=== PATIENT | female | born 1985 | race Caucasian/White ===

== ENCOUNTER 2018-10-10 17:23 | Emergency (ER) | payer OTHER ==
[2018-10-10] MEDS ORDERED: Amoxicillin/Clavulanate TAB* 875 MG PO ONE (19:09)
[2018-10-10] MEDS ORDERED: oxyCODONE/Acetamin 5/325 MG* TAB PO ONE (19:10)
--- NOTE | 2018-10-10 19:13 | ED ---
Throat Pain/Nasal Congestion - HPI Summary HPI Summary: 32 year old male presents with intermittent dental pain for the past month. States she's been in and out of the oral surgeon's office due to an impacted tooth on left upper jaw. States that it connected into her sinuses. States that her sinuses are open to her mouth due to the hole in her tooth. States that 2 days ago her child ended up hitting her face and caused increased pain. She is worried about infection. She called her dentist but unable to get ahold of him so the office requested her come here for pain medication and antibiotics. She denies any fevers. No pain or swelling around her eyes. No fevers. No chest pain or shortness of breath. Has no medical conditions. - History of Current Complaint Chief Complaint: EDDentalPain Time Seen by Provider: 10/10/18 18:21 - Allergies/Home Medications Allergies/Adverse Reactions: Allergies Allergy/AdvReac Type Severity Reaction Status Date / Time cefaclor [From Ceclor] Allergy Unknown Verified 10/10/18 17:46 Reaction Details erythromycin base Allergy Unknown Verified 10/10/18 17:46 [From Pediazole] Reaction Details sulfisoxazole Allergy Unknown Verified 10/10/18 17:46 [From Pediazole] Reaction Details benzonatate AdvReac Nausea And Verified 10/10/18 17:46 [From Tessalon Perles] Vomiting ketorolac [From Toradol] AdvReac Hives Verified 10/10/18 17:46 Home Medications: Home Medications Acetaminophen [Tylenol Extra Strength] 1,000 mg PO TID PRN 10/10/18 [History Confirmed 10/10/18] FLUoxetine CAP* [PROzac CAP*] 20 mg PO BEDTIME 10/10/18 [History Confirmed 10/10] Ibuprofen TAB* [Motrin TAB* 800 MG] 800 mg PO TID PRN 10/10/18 [History Confirmed 10/10/18] PMH/Surg Hx/FS Hx/Imm Hx Endocrine/Hematology History: Denies: Hx Anticoagulant Therapy - ER) making it better Cardiovascular History: Denies: Hx Pacemaker/ICD History: Denies: Hx Dialysis Sensory History: Denies: Hx Eye Prosthesis, Hx Legally Blind Opthamlomology History: Denies: Hx Eye Prosthesis, Hx Legally Blind Neurological History: Denies: Hx Dementia Psychiatric History: Reports: Hx Anxiety, Hx Depression Denies: Hx Autism Infectious Disease History: No Infectious Disease History: Denies: Traveled Outside the [place] in Last 30 Days - Family History Known Family History: Positive: Hypertension, Diabetes - Social History Alcohol Use: Occasionally Hx Substance Use: Yes Substance Use Type: Reports: Marijuana Substance Use Comment - Amount & Last Used: Rare Hx Tobacco Use: Yes Smoking Status (MU): Light Every Day Tobacco Smoker Review of Systems Negative: Fever Positive: Dental Pain Negative: Chest Pain Negative: Shortness Of Breath All Other Systems Reviewed And Are Negative: Yes Physical Exam Triage Information Reviewed: Yes Vital Signs On Initial Exam: Initial Vitals Temp Pulse Resp BP Pulse Ox 98.2 F 105 16 137/91 100 10/10/18 17:41 10/10/18 17:41 10/10/18 17:41 10/10/18 17:41 10/10/18 17:41 Vital Signs Reviewed: Yes Appearance: Positive: Well-Appearing Skin: Positive: Warm, Dry Head/Face: Positive: Normal Head/Face Inspection Eyes: Positive: Normal, Conjunctiva Clear ENT: Positive: Pharynx normal Dental: Positive: Other - pain where tooth 16 should be with suture in place in gum Respiratory/Lung Sounds: Positive: Clear to Auscultation, Breath Sounds Present Cardiovascular: Positive: Normal, RRR Musculoskeletal: Positive: Normal Neurological: Positive: Normal Psychiatric: Positive: Normal Diagnostics - Vital Signs Vital Signs Temp Pulse Resp BP Pulse Ox 10/10/18 17:41 98.2 F 105 16 137/91 100 - Laboratory Lab Statement: Any lab studies that have been ordered have been reviewed, and results considered in the medical decision making process. EENT Course/Dx - Course Course Of Treatment: 32 year old male presents with intermittent dental pain for the past month. States she's been in and out of the oral surgeon's office due to an impacted tooth on left upper jaw. States that it connected into her sinuses. States that her sinuses are open to her mouth due to the hole in her tooth. States that 2 days ago her child ended up hitting her face and caused increased pain. She is worried about infection. She called her dentist but unable to get ahold of him so the office requested her come here for pain medication and antibiotics. She denies any fevers. No pain or swelling around her eyes. No fevers. No chest pain or shortness of breath. Has no medical conditions. On exam has tenderness to where tooth 16 was with sutures in place. We'll place on Augmentin. gave short course of pain medications and antibiotics to get her till Monday when she follows up with her surgeon. Patient understands agrees plan. - Differential Diagnoses Differential Diagnoses: Dental Abscess, Dental Caries, Fractured Tooth - Diagnoses Provider Diagnoses: Tooth infection Discharge - Sign-Out/Discharge Documenting (check all that apply): Patient Departure Patient Received Moderate/Deep Sedation with Procedure: No - Discharge Plan Condition: Good Disposition: HOME Prescriptions: Amoxicillin/Clavulanate TAB* [Augmentin TAB 500 mg*] 500 mg PO BID #13 tab oxyCODONE/Acetamin 5/325 MG* [Percocet 5/325 TAB*] 1 tab PO Q6H PRN #8 tab MDD 4 PRN Reason: Pain Patient Education Materials: Toothache (ED) Referrals: Carmen Short EDUCATION COORDINATOR [Primary Care Provider] - Additional Instructions: Take antibiotic twice a day for 7 days, first dose given in ED Use ibuprofen every 6 hours and narcotic for break through pain at night every 6 hours Avoid hard, crunchy food until seen by dentist Follow up with dentist as soon as possible Return to ED if develop fever, shortness of breath, pain with eye movement or swelling around eye or any new or worsening symptoms - Billing Disposition and Condition Condition: GOOD Disposition: Home Images - Images Dental: 1 - pain
[2018-10-10 19:42] VITALS: BP 126/91
== END 2018-10-10 19:41 | disposition home or self-care (01) ==
LOC: ED 17:23 → MERGE 17:23 → ED 19:41
DX: K04.7 Periapical abscess without sinus (principal); F17.210 Nicotine dependence, cigarettes, uncomplicated; Z88.3 Allergy status to other anti-infective agents; Z88.2 Allergy status to sulfonamides; Z88.8 Allergy status to other drugs, medicaments and biological substances
CPT/HCPCS: 99282; A9270-GY

== ENCOUNTER 2018-10-16 15:20 | Emergency (ER) | payer MEDICAID ==
[2018-10-16] MEDS ORDERED: Ondansetron INJ* 2 MG/ML VIAL IV ONE (16:13)
[2018-10-16] MEDS ORDERED: NS 0.9% 1000 ML** 1,000 ML IV ONE (16:13)
[2018-10-16 16:28] LABS: ABS Basophils 0.1 10^3/ul (0-0.2); ABS Eosinophils 0.4 10^3/ul (0-0.6); ABS Lymphocytes 4.5 10^3/ul (1.0-4.8); ABS Monocytes 0.9 10^3/ul (0-0.8); ABS Neutrophils 9.2 10^3/ul (1.5-7.7); Eosinophil % 2.9 %; Hematocrit 40 % (35-47); Hemoglobin 13.3 g/dL (12.0-16.0); Lymphocyte % 29.5 %; Mean Corpuscular HGB Conc 34 g/dL (31-36); Mean Corpuscular Hemoglobin 30 pg (27-31); Mean Corpuscular Volume 89 fL (80-97); Mean Platelet Volume 6.5 fL (7.4-10.4); Platelet Count 475 10^3/uL (150-450); Red Blood Count 4.42 10^6 /uL (3.70-4.87); Red Cell Distribution Width 14 % (10.5-15); White Blood Count 15.1 10^3/uL (3.5-10.8)
--- NOTE | 2018-10-16 16:30 | ED ---
Abdominal Pain/Female - HPI Summary HPI Summary: Patient is a 32-year-old female who presents to the ED with left-sided pain. She is a history of kidney stones, but states this feels different. Her pain is most notably located over the left side radiating into the left hip. Denies any radiation to the LLQ. Denies any flank pain. Denies any urinary symptoms, weakness in the bilateral lower extremity is, nausea, vomiting, diarrhea, constipation. She's never had this type of pain before. Patient endorses acute onset of pain this morning upon wakening. She denies any other symptoms. History of appendectomy and cholecystectomy. No history of constipation or diarrhea. Last bowel movement yesterday. She is not currently on her period and denies chance of . Temp 98.5, tachycardia at 1:15, 120/88 and respirations are 16. Upon recheck, heart rate is now 96. - History of Current Complaint Chief Complaint: EDNauseaVomitDiarrh Stated Complaint: LT SIDE PAIN PER PT Time Seen by Provider: 10/16/18 16:05 Hx Obtained From: Patient ?: No Onset/Duration: Sudden Onset Timing: Constant Severity Initially: Moderate Severity Currently: Moderate Pain Intensity: 8 Pain Scale Used: 0-10 Numeric Location: Other - left sided pain Radiates: No Character: Sharp, Cramping Aggravating Factor(s): Nothing Alleviating Factor(s): Nothing - Risk Factors Ectopic Risk Factor: Negative Ovarian Torsion Risk Factor: Negative Allergies/Adverse Reactions: Allergies Allergy/AdvReac Type Severity Reaction Status Date / Time cefaclor [From Ceclor] Allergy Unknown Verified 10/16/18 16:00 Reaction Details erythromycin base Allergy Unknown Verified 10/16/18 16:00 [From Pediazole] Reaction Details sulfisoxazole Allergy Unknown Verified 10/16/18 16:00 [From Pediazole] Reaction Details benzonatate AdvReac Nausea And Verified 10/16/18 16:00 [From Tessalon Perles] Vomiting ketorolac [From Toradol] AdvReac Hives Verified 10/16/18 16:00 Home Medications: Home Medications Multivitamin [Multivitamins] 1 cap PO QAM 10/16/18 [History Confirmed 10/16/18] PMH/Surg Hx/FS Hx/Imm Hx Previously Healthy: Yes Endocrine/Hematology History: Denies: Hx Anticoagulant Therapy - ER) making it better, Hx Diabetes Cardiovascular History: Denies: Hx Congestive Heart Failure, Hx Hypertension, Hx Pacemaker/ICD GI History: Reports: Other GI Disorders - inguinal hernias as an infant History: Reports: Hx Kidney Stones Denies: Hx Dialysis, Hx Renal Disease Sensory History: Reports: Hx Contacts or Glasses Denies: Hx Eye Prosthesis, Hx Legally Blind Opthamlomology History: Reports: Hx Contacts or Glasses Denies: Hx Eye Prosthesis, Hx Legally Blind Neurological History: Reports: Hx Migraine Denies: Hx Dementia Psychiatric History: Reports: Hx Anxiety, Hx Depression Denies: Hx Autism - Surgical History Surgery Procedure, Year, and Place: 2 inguinal hernia repairs as infant, appendectomy - Immunization History Date of Tetanus Vaccine: w/in last 10 years Date of Influenza Vaccine: 2013 Hx Pertussis Vaccination: No Immunizations Up to Date: Yes Infectious Disease History: No Infectious Disease History: Reports: Hx Clostridium Difficile - in 2010 post antibiotics Denies: Traveled Outside the [place] in Last 30 Days - Family History Known Family History: Positive: Hypertension, Diabetes - Social History Occupation: Unemployed Lives: With Family Alcohol Use: Occasionally Hx Substance Use: Yes Substance Use Type: Reports: None Substance Use Comment - Amount & Last Used: Rare Hx Tobacco Use: Yes Smoking Status (MU): Light Every Day Tobacco Smoker Type: Cigarettes Amount Used/How Often: 14 cigarettes /day Have You Smoked in the Last Year: Yes Review of Systems Constitutional: Negative Negative: Fever, Chills, Fatigue, Skin Diaphoresis Negative: Dental Pain Negative: Palpitations, Chest Pain Negative: Shortness Of Breath, Cough Positive: Abdominal Pain - left sided pain Genitourinary: Negative Positive: no symptoms reported Musculoskeletal: Negative Skin: Negative All Other Systems Reviewed And Are Negative: Yes Physical Exam Triage Information Reviewed: Yes Vital Signs On Initial Exam: Initial Vitals Temp Pulse Resp BP Pulse Ox 98.5 F 115 16 120/88 98 10/16/18 15:31 10/16/18 15:31 10/16/18 15:31 10/16/18 15:31 10/16/18 15:31 Vital Signs Reviewed: Yes Appearance: Positive: Well-Appearing, Well-Nourished Skin: Positive: Warm, Skin Color Reflects Adequate Perfusion Head/Face: Positive: Normal Head/Face Inspection Eyes: Positive: EOMI, TING, Conjunctiva Clear Neck: Positive: Supple, No Lymphadenopathy Respiratory/Lung Sounds: Positive: Clear to Auscultation Cardiovascular: Positive: RRR, Pulses are Symmetrical in both Upper and Lower Extremities Musculoskeletal: Positive: Normal, Strength/ROM Intact Neurological: Positive: Speech Normal Psychiatric: Positive: Normal, Affect/Mood Appropriate AVPU Assessment: Alert Diagnostics - Vital Signs Vital Signs Temp Pulse Resp BP Pulse Ox 10/16/18 16:14 96 123/85 98 10/16/18 15:31 98.5 F 115 16 120/88 98 - Laboratory Result Diagrams: 10/16/18 16:21 10/16/18 16:21 Lab Statement: Any lab studies that have been ordered have been reviewed, and results considered in the medical decision making process. Abdominal Pain Fem Course/Dx - Course Course Of Treatment: During this patient's course of treatment, the patient is evaluated for left-sided pain. She denies any pain to the left rib cage and flank pain, but endorses pain directly over the left side which is stabbing in nature, worse with palpation and better with positioning. Discussed with the patient this is likely musculoskeletal, however we'll we will obtain labs and a urine to assure. Patient has a history of kidney stones, but states this feels different. There is no radiation of pain. On physical examination, patient appears well, nontoxic appearing. Lungs CTA, RRR, there is pain to palpation of the left side. She does endorse nausea, vomiting 1 this morning with this pain. She denies any recent vomiting, however endorses nausea still. She is given Zofran and normal saline. No pain to the LLQ. Denies any constipation, diarrhea, nausea, vomiting. Last obtained and are WNL. UA obtained which shows no findings. Patient will be DC'd home with a few days of tramadol. Discussed with patient this does not require oxycodone, despite her requests for this medication. - Diagnoses Provider Diagnoses: Left sided abdominal pain Discharge - Sign-Out/Discharge Documenting (check all that apply): Patient Departure Patient Received Moderate/Deep Sedation with Procedure: No - Discharge Plan Condition: Stable Disposition: HOME Prescriptions: traMADol TAB* [Ultram*] 50 mg PO Q8H PRN #5 tab MDD 3 PRN Reason: Pain Patient Education Materials: Abdominal Pain (ED) Referrals: Green,Carmen, SALES SUPPORT CONSULTANT [Primary Care Provider] - Additional Instructions: Tylenol and ibuprofen, use intermittently for pain For pain not well controlled with Tylenol or ibuprofen, you may use tramadol as needed If he develop any worsening or changing symptoms, return to the ED - Billing Disposition and Condition Condition: STABLE Disposition: Home
[2018-10-16] MEDS ORDERED: Acetaminophen TAB* 325 MG PO ONE (16:34)
[2018-10-16 16:53] LABS: ALT 10 U/L (7-52); AST 11 U/L (13-39); Albumin 4.3 g/dL (3.2-5.2); Albumin/Globulin Ratio 1.5 (1-3); Alkaline Phosphatase 104 U/L (34-104); Anion Gap 7 mmol/L (2-11); BUN/Creatinine Ratio 16.7 (8-20); Blood Urea Nitrogen 12 mg/dL (6-24); C Reactive Protein < 1.00 mg/L (<8.01); CO2 Carbon Dioxide 26 mmol/L (22-32); Calcium 9.9 mg/dL (8.6-10.3); Chloride 108 mmol/L (101-111); EGFR African American 115.1 (>60); EGFR Non-African American 95.1 (>60); Globulin 2.9 g/dL (2-4); Glucose 95 mg/dL (70-100); Potassium 4.3 mmol/L (3.5-5.0); Sodium 141 mmol/L (135-145); Total Protein 7.2 g/dL (6.4-8.9)
[2018-10-16 17:22] VITALS: BP 110/66
[2018-10-16 17:22] LABS: Urine Appearance Clear; Urine Bilirubin Negative (Negative); Urine Blood Negative (Negative); Urine Color Yellow; Urine Glucose Negative (Negative); Urine Ketones Negative (Negative); Urine Nitrite Negative (Negative); Urine Protein Negative (Negative); Urine Specific Gravity 1.014 (1.010-1.030); Urine Urobilinogen Negative (Negative)
== END 2018-10-16 17:22 | disposition home or self-care (01) ==
LOC: ED 15:20
DX: R10.9 Unspecified abdominal pain (principal); F17.210 Nicotine dependence, cigarettes, uncomplicated; Z88.2 Allergy status to sulfonamides; Z87.442 Personal history of urinary calculi
CPT/HCPCS: 36415; 74018; 80053; 81003; 85025; 86140; 96361; 96374; 99283; A9270-GY; J2405